=== PATIENT | female | born 1985 | race Caucasian/White ===

== ENCOUNTER 2019-10-14 13:30 | Outpatient (CLI) | payer OTHER, SELFPAY ==
--- NOTE | ~2019-10-14 | XR_ITS ---
EXAMINATION: XR ankle LT min 3V DATE: 10/14/2019 13:49 INDICATION: Left ankle injury with lateral sided pain TECHNIQUE: Weight bearing anteroposterior, mortise, and lateral views of the left ankle were obtained . COMPARISON: None. FINDINGS: Alignment is normal. No fracture. Joint spaces are well maintained. No ankle joint effusion. The so ft tissues are unremarkable. IMPRESSION: 1. Negative left ankle radiographs. Reviewed, dictated and finalized at location A.
== END 2019-10-14 13:31 | disposition home or self-care (01) ==
LOC: CHSIMG 13:33
PROVIDERS: PCP Family Medicine; Visit Provider Orthopaedic Surgery
DX: M25.572 Pain in left ankle and joints of left foot (principal)
CPT/HCPCS: 73610

== ENCOUNTER → 2022-07-02 12:47 | Outpatient (CLI) | payer OTHER, SELFPAY ==
--- NOTE | ~2022-07-02 | MR_ITS ---
EXAMINATION: MR foot LT wo con DATE: 07/02/2022 13:25 INDICATION: Peroneal tenosynovitis with left foot pain, swelling and bruising TECHNIQUE: Magnetic resonance imaging (MRI) of the left foot excluding the toes was performed without intravenous contrast. Sequences included sagittal, coronal, and axial proton-density weighted fast s pin echo without and with fat saturation. COMPARISON: None. FINDINGS: Medial ankle ligaments: The superficial deltoid ligaments as well as the spring ligament are normal. There is loss of the nor mendoza more sharply defined striated pattern of the deep deltoid ligament consistent with mild scarrin g related to chronic sprain. Lateral ankle ligaments: The anterior and posterior inferior tibiofibular ligaments are normal. There is a high-grade partial if not complete tear of the anterior talofibular ligament. No significant surrounding edema to sugges t a recent injury. There is mild thickening and mild increased signal at the fibular origin of the ca lcaneofibular ligament consistent with mild scarring related to chronic sprain. The posterior talofib ular ligament is normal. Tendons: Achilles tendon is normal. There is a small amount of increased fluid signal extending along the othe rwise normal peroneus longus and brevis tendons consistent with mild peroneal tenosynovitis. The tibi evans anterior and extensor hallucis longus and extensor digitorum longus tendons are normal. The tibi evnas posterior, flexor digitorum longus and flexor hallucis longus tendons are normal. Plantar fascia: Plantar aponeurosis is normal. Bones/other: Bone alignment is normal. Normal marrow signal throughout with no fracture or pathologic marrow repla cing process. Mild osteoarthritis at a few of the tarsal metatarsal joints. The Lisfranc ligament com plex is normal. The sinus Tarsi and tarsal tunnel are unremarkable. Fluid: Physiologic amount fluid in the joint spaces. IMPRESSION: 1. Mild peroneal tenosynovitis with normal appearing peroneus longus and brevis tendons. 2. 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 Reviewed, dictated and finalized at location A. IMPRESSION: 1. Mild peroneal tenosynovitis with normal appearing peroneus longus and brevis tendons. 2. Chronic mild high-grade partial if not complete tear of the anterior talofib ular ligament and mild scarring consistent with chronic partial tear of the pro ximal calcaneofibular ligament.
== END ==
PROVIDERS: PCP Physician Assistant
DX: M65.9 Synovitis and tenosynovitis, unspecified (principal)
CPT/HCPCS: 73718

== ENCOUNTER → 2022-11-18 10:30 | Outpatient (CLI) | payer OTHER, SELFPAY ==
--- NOTE | ~2022-11-18 | US_ITS ---
EXAMINATION: US retroperitoneal duplex ltd DATE: 11/18/2022 10:55 INDICATION: Essential hypertension TECHNIQUE: Multiple grayscale, color Doppler, and pulsed Doppler images of the kidneys and renal radha rody were obtained. COMPARISON: CT abdomen pelvis dated 08/08/2017 FINDINGS: The aorta peak systolic velocity is 83 cm/s. The right renal artery peak systolic velocity is 87 cm/s in the proximal segment, 110 cm/s in the mid segment, and 165 cm/s in the distal segment. The left r enal artery peak systolic velocity is 78 cm/s in the proximal segment, 129 cm/s in the mid segment, a nd 91 cm/s in the distal segment. IMPRESSION: 1. No Doppler evidence of renal artery stenosis. Reviewed, dictated and finalized at location A.
== END ==
PROVIDERS: PCP Family Medicine; Visit Provider Family Medicine
DX: R06.81 Apnea, not elsewhere classified (principal); R53.83 Other fatigue; E78.5 Hyperlipidemia, unspecified; I10 Essential (primary) hypertension; R00.0 Tachycardia, unspecified; Z12.39 Encounter for other screening for malignant neoplasm of breast; Z80.3 Family history of malignant neoplasm of breast; Z68.23 Body mass index [BMI] 23.0-23.9, adult
CPT/HCPCS: 93976

== ENCOUNTER → 2023-01-11 10:46 | Outpatient (CLI) | payer OTHER, SELFPAY ==
--- NOTE | ~2023-01-11 | MR_ITS ---
MRI of the left ankle Clinical history: Stenosed tendon Technique: Coronal proton-density and proton-density fat-sat images, axial proton-density and proton- density fat-sat images, and sagittal proton-density and proton-density fat-sat images were acquired. COMPARISON: 07/02/2022 Findings: Syndesmotic ligaments are intact. There is evidence of interval surgery at the lateral aspe ct of the ankle, probably related to interval anterior talofibular and calcaneofibular ligament repai r. Posterior talofibular ligament remains intact. Deltoid ligament is intact. Medial flexor tendons, anterior extensor tendons, and Achilles tendon are intact. Peroneus longus ten don is intact. There is apparent complete rupture of the peroneus brevis tendon (axial images 14-17), the level of the lateral malleolus. No osteochondral lesion of the talar dome seen. Aside from postoperative change, remaining osseous st ructures are otherwise unremarkable. There is mild degenerative change of the talonavicular articulat ion. Plantar fascia intact. No abnormal fluid collection or mass lesion seen. Impression: Complete rupture of the peroneus brevis tendon, as detailed above. Interval surgery at the lateral ankle, probably related to interval anterior talofibular ligament and calcaneofibular ligament repair. Reviewed, dictated and finalized at location . MIC ARTIST Impression: Complete rupture of the peroneus brevis tendon, as detailed above. Interval surgery at the lateral ankle, probably related to interval anterior ta lofibular ligament and calcaneofibular ligament repair.
== END ==
DX: M65.9 Synovitis and tenosynovitis, unspecified (principal); S96.812D Strain of other specified muscles and tendons at ankle and foot level, left foot, subsequent encounter; X58.XXXD Exposure to other specified factors, subsequent encounter
CPT/HCPCS: 73721

== ENCOUNTER 2024-11-21 13:22 | Outpatient (CLI) | payer OTHER, SELFPAY ==
--- NOTE | ~2024-11-21 | MR_ITS ---
EXAMINATION: MR ankle LT wo con DATE: 11/21/2024 13:57 INDICATION: Disorder of left ankle ligaments with chronic left ankle pain TECHNIQUE: Magnetic resonance imaging (MRI) of the left ankle was performed without intravenous contrast. Sequences included sagittal, coronal, and axial proton-density weighted fast spin echo without and with fat saturation. COMPARISON: None. FINDINGS: Medial ankle ligaments: The superficial deltoid ligaments as well as the spring ligament are normal. There is loss of the normally well-defined striated pattern of the deep deltoid ligament along with a small heterotopic ossicle along the ligament consistent with sequela of chronic sprain. Lateral ankle ligaments: The anterior and posterior inferior tibiofibular ligaments are normal. The calcaneofibular and posterior talofibular ligaments are normal. Postoperative change of prior anterior talofibular ligament repair which appears intact. Tendons: Achilles tendon is normal. Again seen is a chronic tear of the peroneus brevis tendon versus echogenic resection of the tendon as a donor for the anterior talofibular ligament reconstruction. There is 5 cm separation of the tear margins with the distal tear margin positioned along the distal tip of the lateral malleolus and the proximal tear margin positioned 3 cm above the level of the tibiotalar joint line. There is a new complete tear of the peroneus longus tendon which occurs at the level of the tibia talar joint line with approximately 0.5 cm separation of the tear margins. There is moderate te ndinopathy and longitudinal split tearing extending 4 cm proximally from the proximal tear margin. The tibialis anterior and extensor hallucis longus and extensor digitorum longus tendons are normal. The tibialis posterior, flexor digitorum longus and flexor hallucis longus tendons are normal. Plantar fascia: Plantar aponeurosis is normal. Bones/other: Bone alignment is normal. Normal bone marrow signal throughout. No fracture or pathologic marrow replacing process. Mild polyarticular osteoarthritis at the left ankle and multiple joints in the mid and hindfoot. Fluid: Physiologic amount fluid in the joint spaces. No abnormal fluid collections. IMPRESSION: 1. New complete tear of the peroneus longus tendon. 2. Unchanged chronic peroneus brevis tendon tear versus segmental graft harvest of a portion of the tendon for adjacent anterior talofibular ligament reconstruction which appears intact. 3. Stigmata of chronic sprain of the deep deltoid ligament. Reviewed, dictated and finalized at location A. IMPRESSION: 1. New complete tear of the peroneus longus tendon. 2. Unchanged chronic peroneus brevis tendon tear versus segmental graft harvest of a portion of the tendon for adjacent anterior talofibular ligament reconstr uction which appears intact. 3. Stigmata of chronic sprain of the deep deltoid ligament.
== END 2024-11-21 13:23 | disposition home or self-care (01) ==
LOC: MICIMG 13:23
PROVIDERS: PCP Family Medicine
DX: S86.312A Strain of muscle(s) and tendon(s) of peroneal muscle group at lower leg level, left leg, initial encounter (principal); X58.XXXA Exposure to other specified factors, initial encounter; Z94.89 Other transplanted organ and tissue status; M24.272 Disorder of ligament, left ankle
CPT/HCPCS: 73721